=== PATIENT | male | born 1995 | race African-American/Black ===

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

== ENCOUNTER 2021-11-14 18:23 | Emergency (ER) | payer SELFPAY ==
[~2021-11-14] VITALS: Ht 177.8 cm; Wt 73.0 kg
[2021-11-14 18:25] VITALS: BP 138/98
[2021-11-14] MEDS ORDERED: ONDANSETRON HCL 4MG/2ML INJ IV STA (18:59)
[2021-11-14] MEDS ORDERED: SODIUM CHLORIDE 0.9% 1,000 ML IV ONE (19:00)
== END 2021-11-14 19:19 | disposition left against medical advice (07) ==
LOC: ER 18:23
DX: F19.10 Other psychoactive substance abuse, uncomplicated (principal); F10.129 Alcohol abuse with intoxication, unspecified; Y90.9 Presence of alcohol in blood, level not specified
CPT/HCPCS: 99283; J7030; 80305; 81003